=== PATIENT | female | born 1965 | race Caucasian/White ===

== ENCOUNTER 2020-07-14 13:42 | Inpatient (IN) | payer MEDICAID, OTHER ==
[~2020-07-14] VITALS: Ht 149.9 cm; Wt 42.7 kg
--- NOTE | 2020-07-14 13:55 | NUR ---
DIVISION OPERATIONS MANAGER NOTE, LATE ENRY FOR 1355: EKG COMPLETED IN TRIAGE, REVIEWED BY [place]. EKG BASELINE SHOWS INTERFERANCE, INSTRUCTED EKG TO BE REPEATED WHILE LYING FLAT ON GURNEY. PT TO ROOM 16 WITH TECH FOR REPEAT EKG AT THIS TIME.
--- NOTE | 2020-07-14 14:20 | NUR ---
HOLD ASA 324MG FOR CODE CARDIAC PROTOCOL, PER DR. ROSA. PT TOOK 4 EXCEDRINE AT HOME BEFORE ARRIVING TO ER. PT STRIPPED TO BARE SKIN, HAS HOSPITAL GOWN, 2 IVs.
[2020-07-14] MEDS ORDERED: FENTANYL PF 100 MCG/2ML ONE (14:22)
[2020-07-14] MEDS ORDERED: MIDAZOLAM 1 MG/ML, 5ML ONE (14:22)
[2020-07-14] MEDS ORDERED: VERAPAMIL 2.5 MG/ML, 2ML ONE (14:23)
[2020-07-14] MEDS ORDERED: BIVALIRUDIN 250 MG ONE (14:23)
[2020-07-14] MEDS ORDERED: HEPARIN 1,000 UNITS/ML, 10ML ONE (14:23)
[2020-07-14] MEDS ORDERED: LIDOCAINE 2%, 20ML ONE (14:23)
[2020-07-14] MEDS ORDERED: TICAGRELOR 90 MG TABLET ONE (14:23)
[2020-07-14 14:27] LABS: BASOPHILS # (AUTO) 0.02 x10^3/uL (0-0.1); BASOPHILS % (AUTO) 0 % (0-1); EOSINOPHILS # (AUTO) 0.05 x10^3/uL (0-0.4); EOSINOPHILS % (AUTO) 0 % (1-7); LYMPHOCYTES # (AUTO) 0.84 x10^3/uL (1-3.4); LYMPHOCYTES % (AUTO) 7 % (22-44); MD NO; MEAN CORPUSCULAR HEMOGLOBIN 35.1 pg (27.0-34.8); MEAN CORPUSCULAR HGB CONC 33.6 g/dL (32.4-35.8); MEAN CORPUSCULAR VOLUME 104.3 fL (80-100); MONOCYTES % (AUTO) 6 % (2-9); NEUTROPHILS # (AUTO) 10.86 x10^3/uL (1.8-6.8); NEUTROPHILS % (AUTO) 87 % (42-75); PLATELET COUNT 319 x10^3/uL (130-400); RED BLOOD COUNT 5.26 x10^6/uL (3.82-5.3); RED CELL DISTRIBUTION WIDTH 14.9 % (9.6-15.2)
[2020-07-14 14:36] LABS: INTERNATIONAL NORMALIZED RATIO 0.98 (0.93-1.1); PROTHROMBIN TIME 10.1 Seconds (9.6-11.5)
[2020-07-14] MEDS ORDERED: ACETAMINOPHEN 325 MG TABLET PO PRN (15:00)
[2020-07-14] MEDS ORDERED: SODIUM CHLORIDE FLUSH 10ML SYR IVF ONE (15:00)
[2020-07-14] MEDS ORDERED: BISACODYL 10 MG SUPP PR PRN (15:00)
[2020-07-14] MEDS ORDERED: ONDANSETRON 2MG/ML, 2ML IVPush PRN (15:00)
[2020-07-14] MEDS ORDERED: ASPIRIN 325 MG TABLET EC ONE (15:10)
[2020-07-14] MEDS ORDERED: BIVALIRUDIN 250 MG in SODIUM CHLORIDE 0.9% 50 ML IV SCH (15:16)
[2020-07-14] MEDS: SODIUM CHLORIDE 0.9% 1,000 ML IV SCH ×2 (15:16→23:16)
[2020-07-14 15:42] LABS: ALANINE AMINOTRANSFERASE 40 U/L (12-78); ALBUMIN 3.8 g/dL (3.4-5.0); ANION GAP 8 mmol/L (5-15); CALCIUM 9.7 mg/dL (8.5-10.1); CHLORIDE 101 mmol/L (98-107); CREATININE 0.87 mg/dL (0.55-1.02)
[2020-07-14 15:44] LABS: ALKALINE PHOSPHATASE 147 U/L (45-117); BILIRUBIN,TOTAL 0.4 mg/dL (0.2-1.0); TOTAL PROTEIN 7.9 g/dL (6.4-8.2)
[2020-07-14] MEDS: SODIUM CHLORIDE 0.9% 500 ML IV SCH ×2 (16:38→22:36)
[2020-07-14] MEDS ORDERED: ASPI-691 PO (17:39)
[2020-07-14] MEDS ORDERED: DIPH25TA65 PO (17:39)
[2020-07-14] MEDS ORDERED: ENOXAPARIN 30 MG/0.3 ML SQ SCH (19:00)
[2020-07-14] MEDS: ATORVASTATIN 40 MG TABLET PO SCH (20:11)
[2020-07-14] MEDS: METOPROLOL TARTRATE 25 MG TAB PO SCH (20:11)
[2020-07-15] MEDS: SODIUM CHLORIDE 0.9% 500 ML IV SCH (01:24)
[2020-07-15 04:00] VITALS: BP 132/81
[2020-07-15 06:13] LABS: ANION GAP 8 mmol/L (5-15); CALCIUM 8.4 mg/dL (8.5-10.1); CHLORIDE 108 mmol/L (98-107); CHOLESTEROL, TOTAL 142 mg/dL (140-239); CREATININE 0.46 mg/dL (0.55-1.02)
[2020-07-15 06:17] LABS: HDL CHOL % 33 % (28-40); HDL CHOLESTEROL (DIRECT) 47 mg/dL (40-60); LDL CHOLESTEROL,CALCULATED 65 mg/dL (54-169); LDL/HDL RATIO 1.4 (0.5-3.0); TRIGLYCERIDES 150 mg/dL (50-200); VLDL CHOLESTEROL 30 mg/dL (0-25)
[2020-07-15 06:21] VITALS: BP 132/81
[2020-07-15 06:21] LABS: BASOPHILS # (AUTO) 0.03 x10^3/uL (0-0.1); BASOPHILS % (AUTO) 0 % (0-1); EOSINOPHILS # (AUTO) 0.06 x10^3/uL (0-0.4); EOSINOPHILS % (AUTO) 1 % (1-7); LYMPHOCYTES # (AUTO) 0.64 x10^3/uL (1-3.4); LYMPHOCYTES % (AUTO) 7 % (22-44); MD NO; MEAN CORPUSCULAR HGB CONC 33.3 g/dL (32.4-35.8); MEAN CORPUSCULAR VOLUME 105.2 fL (80-100); MEAN PLATELET VOLUME 7.7 fL (7.4-10.4); MONOCYTES # (AUTO) 0.75 x10^3/uL (0.2-0.8); MONOCYTES % (AUTO) 8 % (2-9); NEUTROPHILS # (AUTO) 7.52 x10^3/uL (1.8-6.8); NEUTROPHILS % (AUTO) 84 % (42-75); PLATELET COUNT 250 x10^3/uL (130-400); RED BLOOD COUNT 4.47 x10^6/uL (3.82-5.3); RED CELL DISTRIBUTION WIDTH 14.8 % (9.6-15.2)
[2020-07-15] MEDS: SODIUM CHLORIDE 0.9% 1,000 ML IV SCH (06:23)
[2020-07-15] MEDS ORDERED: TICAGRELOR 90 MG TABLET ONE (08:58)
[2020-07-15] MEDS ORDERED: TICAGRELOR 90 MG TABLET PO SCH (09:00)
[2020-07-15] MEDS: METOPROLOL TARTRATE 25 MG TAB PO SCH ×2 (09:07→20:24)
[2020-07-15] MEDS: LISINOPRIL 5 MG TABLET PO SCH (09:08)
[2020-07-15] MEDS: ASPIRIN 81 MG TABLET EC PO SCH (09:08)
[2020-07-15] MEDS ORDERED: ASA/APAP/ CAFFEINE TABLET PO PRN (13:00)
[2020-07-15 14:12] VITALS: BP 130/79
[2020-07-15] MEDS ORDERED: PRASUGREL 5 MG TABLET PO SCH (20:00)
[2020-07-15 20:04] VITALS: BP 108/71
[2020-07-15] MEDS: ATORVASTATIN 40 MG TABLET PO SCH (20:24)
[2020-07-16 00:21] VITALS: BP 111/74
[2020-07-16 05:58] LABS: BASOPHILS # (AUTO) 0.02 x10^3/uL (0-0.1); BASOPHILS % (AUTO) 0 % (0-1); EOSINOPHILS # (AUTO) 0.11 x10^3/uL (0-0.4); EOSINOPHILS % (AUTO) 1 % (1-7); LYMPHOCYTES # (AUTO) 0.78 x10^3/uL (1-3.4); LYMPHOCYTES % (AUTO) 8 % (22-44); MD NO; MEAN CORPUSCULAR HEMOGLOBIN 35.4 pg (27.0-34.8); MEAN CORPUSCULAR HGB CONC 33.9 g/dL (32.4-35.8); MEAN CORPUSCULAR VOLUME 104.5 fL (80-100); MEAN PLATELET VOLUME 7.9 fL (7.4-10.4); MONOCYTES # (AUTO) 1.04 x10^3/uL (0.2-0.8); MONOCYTES % (AUTO) 10 % (2-9); NEUTROPHILS # (AUTO) 8.19 x10^3/uL (1.8-6.8); NEUTROPHILS % (AUTO) 81 % (42-75); PLATELET COUNT 219 x10^3/uL (130-400); RED BLOOD COUNT 4.26 x10^6/uL (3.82-5.3); RED CELL DISTRIBUTION WIDTH 15.1 % (9.6-15.2)
[2020-07-16 06:11] LABS: CHLORIDE 106 mmol/L (98-107)
[2020-07-16 06:42] LABS: ANION GAP 8 mmol/L (5-15); CALCIUM 8.5 mg/dL (8.5-10.1); CHOL/HDL RATIO 2.6; CHOLESTEROL, TOTAL 130 mg/dL (140-239); CREATININE 0.46 mg/dL (0.55-1.02); HDL CHOL % 38 % (28-40); HDL CHOLESTEROL (DIRECT) 50 mg/dL (40-60); LDL CHOLESTEROL,CALCULATED 56 mg/dL (54-169); LDL/HDL RATIO 1.1 (0.5-3.0); TRIGLYCERIDES 121 mg/dL (50-200); VLDL CHOLESTEROL 24 mg/dL (0-25)
[2020-07-16 07:34] VITALS: BP 113/78
[2020-07-16] MEDS: METOPROLOL TARTRATE 25 MG TAB PO SCH (08:31)
[2020-07-16] MEDS: ASPIRIN 81 MG TABLET EC PO SCH (08:31)
[2020-07-16] MEDS: LISINOPRIL 5 MG TABLET PO SCH (08:31)
[2020-07-16] MEDS ORDERED: CLOP75TA52 PO (11:16)
[2020-07-16] MEDS ORDERED: METO25TA35 PO (11:16)
[2020-07-16] MEDS ORDERED: NITR0.4T28 SL (11:16)
[2020-07-16] MEDS ORDERED: LISI5TAB7 PO (11:16)
[2020-07-16] MEDS ORDERED: ATOR40TA78 PO (11:16)
[2020-07-16] MEDS ORDERED: ASPI81TA45 PO (11:16)
[2020-07-16] MEDS ORDERED: CLOPIDOGREL 75 MG TABLET PO SCH (11:30)
== END 2020-07-16 14:18 | disposition home or self-care (01) | DRG 174 ==
LOC: ED 14:20 → EDIP 14:42 → SUATTDRO 14:53 → CCU 15:22 → 5SO 07-15 14:17
PROVIDERS: ADMIT Internal Medicine; ATTEND Hospitalist
PROC: 027034Z Dilation of Coronary Artery, One Artery with Drug-eluting Intraluminal Device, Percutaneous Approach (ICD-10-PCS; principal; 2020-07-14)
PROC: 4A023N7 Measurement of Cardiac Sampling and Pressure, Left Heart, Percutaneous Approach (ICD-10-PCS; 2020-07-14)
PROC: B2111ZZ Fluoroscopy of Multiple Coronary Arteries using Low Osmolar Contrast (ICD-10-PCS; 2020-07-14)
PROC: B2151ZZ Fluoroscopy of Left Heart using Low Osmolar Contrast (ICD-10-PCS; 2020-07-14)
DX: I21.19 ST elevation (STEMI) myocardial infarction involving other coronary artery of inferior wall (principal); D50.9 Iron deficiency anemia, unspecified; D75.1 Secondary polycythemia; E78.5 Hyperlipidemia, unspecified; F17.210 Nicotine dependence, cigarettes, uncomplicated; G89.29 Other chronic pain; J44.9 Chronic obstructive pulmonary disease, unspecified; I10 Essential (primary) hypertension; Z79.02 Long term (current) use of antithrombotics/antiplatelets; Z79.82 Long term (current) use of aspirin; Z79.899 Other long term (current) drug therapy
CPT/HCPCS: 36415; 71045; 80047; 80048; 80053; 80061; 82607; 84443; 84484; 85025; 85610; 87081; 93005; 93306; 93458; 99156; 99157; C1769; C1894; G0378; J0583; J1644; J1650; J2250; J3010; C1874; C1887; J7030; Q9967

== ENCOUNTER → 2021-01-13 | Outpatient (CLI) | payer MEDICAID ==
[~2021-01-13] MED LIST: ASPI-691 PO; ASPI81TA45 PO; ATOR40TA78 PO; CLOP75TA52 PO; DIPH25TA65 PO; LISI5TAB7 PO; METO25TA35 PO; NITR0.4T28 SL
== END | disposition home or self-care (01) ==
LOC: CVU 14:55
PROVIDERS: ATTEND Internal Medicine Clinical Cardiac Electrophysiology
DX: I73.9 Peripheral vascular disease, unspecified (principal)
CPT/HCPCS: 93922; 93925